=== PATIENT | male | born 1990 | race Caucasian/White ===

== ENCOUNTER 2016-06-13 15:15 | Emergency (ER) | payer OTHER ==
[~2016-06-13] VITALS: Ht 188 cm; Wt 103.6 kg
[~2016-06-13 15:15] MED LIST: ADDERALL XR 2020 MG PO; AZITHROMYCIN250 MG PO; BUPROPION XL150 MG PO; MIRTAZAPINE30 MG PO; ZITHROMAX500 MG PO
[2016-06-13 17:54] VITALS: BP 124/61
== END 2016-06-13 17:57 | disposition home or self-care (01) ==
LOC: EME 15:15
DX: F33.1 Major depressive disorder, recurrent, moderate (principal); F12.90 Cannabis use, unspecified, uncomplicated; F17.200 Nicotine dependence, unspecified, uncomplicated
CPT/HCPCS: 90839; 99281; 99284